=== PATIENT | female | born 1930 | race American Indian/Alaskan Native ===

== ENCOUNTER 2017-03-08 17:30 | Inpatient (IN) | payer MEDICARE ==
[2017-03-08] MEDS ORDERED: ATROVENT IH ONE (21:10)
[2017-03-08] MEDS ORDERED: PROVENTIL IH ONE (21:10)
--- NOTE | 2017-03-08 21:11 | Emergency Department Report ---
ED General Adult HPI - General Chief complaint: Upper Respiratory Infection Stated complaint: FLU LIKE SYMPTOMS Time Seen by Provider: 03/08/17 20:58 Source: patient, family, RN notes reviewed Mode of arrival: Wheelchair Limitations: No Limitations, Physical Limitation - History of Present Illness Initial comments: This is an 86-year-old female who was previously unknown to this provider. Past medical history includes parkinsonism, hypertension, hysterectomy, primary care doctor is Dr. Sachi Mcclendon Patient brought to the hospital by family for cough, mucus production, episode of transient change in mental status. Family reports that the patient appeared dazed and unresponsive for a few minutes, this has since resolved. The patient denies headache, neck pain, chest pain, abdominal pain, miss a cough, wheezing, shortness of breath and mucus production. Cough and wheezing are constant for 1 day, they do not radiate anywhere and they're painless. She denies headache, leg pain, irritative/obstructive urinary symptoms. -: Sudden Consistency: constant Improves with: none Worsens with: none Associated Symptoms: confusion, cough, loss of appetite, malaise, weakness - Related Data Home Medications Medication Instructions Recorded Confirmed Last Taken Amlodipine Besylate [Norvasc] 2.5 mg PO QHS 03/09/17 03/09/17 03/08/17 20:00 Carbidopa/Levodopa 25-100 [Sinemet] 0.5 each PO TID 03/09/17 03/09/17 03/08/17 20:00 Cimetidine 300 mg PO Q12HR 03/09/17 03/09/17 03/08/17 20:00 Fosinopril Sodium 20 mg PO QDAY 03/09/17 03/09/17 03/08/17 10:00 Allergies Allergy/AdvReac Type Severity Reaction Status Date / Time No Known Allergies Allergy Verified 03/08/17 23:47 ED Review of Systems ROS: Stated complaint: FLU LIKE SYMPTOMS Other details as noted in HPI Constitutional: malaise, weakness Respiratory: cough, shortness of breath Cardiovascular: denies: chest pain Gastrointestinal: denies: vomiting Genitourinary: as per HPI Musculoskeletal: as per HPI Skin: as per HPI Neurological: as per HPI, weakness, confusion Psychiatric: as per HPI ED Past Medical Hx - Past Medical History Previous Medical History?: Yes Hx Hypertension: Yes Hx GERD: Yes Hx of Cancer: Yes (uterine) Hx Arthritis: Yes Additional medical history: Parkinson - Surgical History Past Surgical History?: Yes Additional Surgical History: hysterectomy - Social History Smoking Status: Never Smoker Substance Use Type: Prescribed - Medications Home Medications: Home Medications Medication Instructions Recorded Confirmed Last Taken Type Amlodipine Besylate [Norvasc] 2.5 mg PO QHS 03/09/17 03/09/17 03/08/17 20:00 History Carbidopa/Levodopa 25-100 [Sinemet] 0.5 each PO TID 03/09/17 03/09/17 03/08/17 20:00 History Cimetidine 300 mg PO Q12HR 03/09/17 03/09/17 03/08/17 20:00 History Fosinopril Sodium 20 mg PO QDAY 03/09/17 03/09/17 03/08/17 10:00 History ED Physical Exam - General Limitations: Physical Limitation General appearance: alert, in no apparent distress - Head Head exam: Present: atraumatic, normocephalic - Eye Eye exam: Present: normal appearance, EOMI. Absent: nystagmus - ENT ENT exam: Present: normal exam, normal orophraynx, mucous membranes moist, normal external ear exam - Neck Neck exam: Present: normal inspection, full ROM - Respiratory Respiratory exam: Present: rhonchi. Absent: respiratory distress, wheezes, rales - Cardiovascular Cardiovascular Exam: Present: regular rate, normal rhythm, normal heart sounds. Absent: systolic murmur, diastolic murmur, rubs, gallop - GI/Abdominal GI/Abdominal exam: Present: soft, normal bowel sounds. Absent: distended, tenderness, guarding, rebound, rigid, pulsatile mass - Extremities Exam Extremities exam: Present: normal inspection, full ROM, normal capillary refill. Absent: tenderness, pedal edema, joint swelling, calf tenderness - Back Exam Back exam: Present: normal inspection, full ROM. Absent: tenderness, CVA tenderness (R), paraspinal tenderness, vertebral tenderness - Neurological Exam Neurological exam: Present: alert (patient has parkinsonism and shaking), oriented X3, other (Extraocular movements intact. Tongue midline. No facial droop. Facial sensation intact to light touch in the V1, V2, V3 distribution bilaterally. 5 and 5 strength in 4 extremities.. Sensation is intact to light touch in 4 extremities.). Absent: motor sensory deficit - Psychiatric Psychiatric exam: Present: normal affect, normal mood, other (patient can recall 3 out of 3 words at time 0 and at 5 minutes. Patient is able to multiply and add.) - Skin Skin exam: Present: warm, dry, intact, normal color. Absent: rash ED Course Vital Signs 03/08/17 03/08/17 03/08/17 17:36 20:56 21:00 Temperature 98.8 F Pulse Rate 75 79 Pulse Rate [ Right Middle Lobe] Respiratory 18 21 Rate Respiratory Rate [Right Middle Lobe] Blood Pressure 188/85 188/73 O2 Sat by Pulse 97 100 71 L Oximetry 03/08/17 03/08/17 03/08/17 21:15 21:20 21:28 Temperature Pulse Rate 77 Pulse Rate [ 80 Right Middle Lobe] Respiratory 24 20 Rate Respiratory 18 Rate [Right Middle Lobe] Blood Pressure 191/77 O2 Sat by Pulse 99 Oximetry 03/08/17 03/08/17 03/08/17 21:43 21:46 22:10 Temperature Pulse Rate 80 81 96 H Pulse Rate [ Right Middle Lobe] Respiratory 20 17 20 Rate Respiratory Rate [Right Middle Lobe] Blood Pressure 161/71 198/86 O2 Sat by Pulse 100 100 100 Oximetry 03/08/17 03/08/17 03/08/17 22:16 22:30 22:45 Temperature Pulse Rate 97 H 100 H 96 H Pulse Rate [ Right Middle Lobe] Respiratory 22 22 20 Rate Respiratory Rate [Right Middle Lobe] Blood Pressure 121/102 94/47 95/53 O2 Sat by Pulse 93 94 97 Oximetry 03/08/17 03/08/17 03/08/17 22:48 23:00 23:15 Temperature Pulse Rate 94 H 91 H 94 H Pulse Rate [ Right Middle Lobe] Respiratory 22 20 11 L Rate Respiratory Rate [Right Middle Lobe] Blood Pressure 95/53 112/51 105/49 O2 Sat by Pulse 96 94 96 Oximetry 03/08/17 03/08/17 03/09/17 23:30 23:45 00:00 Temperature Pulse Rate 87 82 82 Pulse Rate [ Right Middle Lobe] Respiratory 18 23 21 Rate Respiratory Rate [Right Middle Lobe] Blood Pressure 115/57 112/50 118/50 O2 Sat by Pulse 98 96 95 Oximetry 03/09/17 03/09/17 03/09/17 00:15 00:30 00:45 Temperature Pulse Rate 80 76 74 Pulse Rate [ Right Middle Lobe] Respiratory 23 21 18 Rate Respiratory Rate [Right Middle Lobe] Blood Pressure 115/56 117/57 118/57 O2 Sat by Pulse 98 97 99 Oximetry 03/09/17 03/09/17 03/09/17 01:00 01:16 01:30 Temperature Pulse Rate 75 83 82 Pulse Rate [ Right Middle Lobe] Respiratory 18 20 22 Rate Respiratory Rate [Right Middle Lobe] Blood Pressure 125/56 121/56 121/56 O2 Sat by Pulse 100 99 87 Oximetry 03/09/17 03/09/17 03/09/17 01:46 02:00 02:10 Temperature Pulse Rate 80 80 81 Pulse Rate [ Right Middle Lobe] Respiratory 21 23 18 Rate Respiratory Rate [Right Middle Lobe] Blood Pressure 121/61 122/60 121/61 O2 Sat by Pulse 98 100 99 Oximetry - Reevaluation(s) Reevaluation #1: 03/09/17 01:09 Differential diagnosis, including but not limited to: Urinary tract infection, pneumonia, dehydration, bacteremia Assessment and plan: 86-year-old female with cough, wheezing, bilateral rhonchi , x-ray of the chest suggest bilateral lower lobe pneumonia, patient is tachypneic, initially hypertensive, now somewhat hypotensive with blood pressure in the high 90s, afebrile. Patient will be treated empirically for community-acquired pneumonia. Currently alert and oriented 3, with a nonfocal neurologic examination, with no headache or neck pain. Patient will be admitted for community-acquired pneumonia, and hypotension, IV fluids are being administered, noncontrast CT scan of the brain is pending, laboratory studies otherwise unremarkable, urinalysis is not consistent with UTI. Reevaluation #3: 03/09/17 01:28 Case is presented to the Hospital physician, Dr. Calderon, who accepts the patient to the medical service. ED Medical Decision Making - Lab Data Result diagrams: 03/08/17 21:27 03/08/17 21:27 Vital Signs 03/08/17 03/08/17 03/08/17 17:36 20:56 21:00 Temperature 98.8 F Pulse Rate 75 79 Pulse Rate [ Right Middle Lobe] Respiratory 18 21 Rate Respiratory Rate [Right Middle Lobe] Blood Pressure 188/85 188/73 O2 Sat by Pulse 97 100 71 L Oximetry 03/08/17 03/08/17 03/08/17 21:15 21:20 21:28 Temperature Pulse Rate 77 Pulse Rate [ 80 Right Middle Lobe] Respiratory 24 20 Rate Respiratory 18 Rate [Right Middle Lobe] Blood Pressure 191/77 O2 Sat by Pulse 99 Oximetry 03/08/17 03/08/17 03/08/17 21:43 21:46 22:10 Temperature Pulse Rate 80 81 96 H Pulse Rate [ Right Middle Lobe] Respiratory 20 17 20 Rate Respiratory Rate [Right Middle Lobe] Blood Pressure 161/71 198/86 O2 Sat by Pulse 100 100 100 Oximetry 03/08/17 03/08/17 03/08/17 22:16 22:30 22:45 Temperature Pulse Rate 97 H 100 H 96 H Pulse Rate [ Right Middle Lobe] Respiratory 22 22 20 Rate Respiratory Rate [Right Middle Lobe] Blood Pressure 121/102 94/47 95/53 O2 Sat by Pulse 93 94 97 Oximetry Lab Results 03/08/17 03/08/17 03/08/17 Range/Units 21:27 21:27 22:44 WBC 5.1 (4.5-11.0) K/mm3 RBC 4.34 (3.65-5.03) M/mm3 Hgb 12.8 (10.1-14.3) gm/dl Hct 39.9 (30.3-42.9) % MCV 92 (79-97) fl MCH 29 (28-32) pg MCHC 32 (30-34) % RDW 15.1 (13.2-15.2) % Plt Count 169 (140-440) K/mm3 Sodium 138 (137-145) mmol/L Potassium 4.4 (3.6-5.0) mmol/L Chloride 98.4 (98-107) mmol/L Carbon Dioxide 25 (22-30) mmol/L Anion Gap 19 mmol/L BUN 23 H (7-17) mg/dL Creatinine 1.0 (0.7-1.2) mg/dL Estimated GFR > 60 ml/min BUN/Creatinine Ratio 23 % Glucose 94 (65-100) mg/dL Calcium 8.7 (8.4-10.2) mg/dL Total Creatine Kinase 241 H (30-135) units/L Urine Color Yellow (Yellow) Urine Turbidity Clear (Clear) Urine pH 5.0 (5.0-7.0) Ur Specific [place] 1.025 (1.003-1.030) Urine Protein <15 mg/dl (Negative) mg/dL Urine Glucose (UA) Neg (Negative) mg/dL Urine Ketones Tr (Negative) mg/dL Urine Blood Sm (Negative) Urine Nitrite Neg (Negative) Urine Bilirubin Neg (Negative) Urine Urobilinogen < 2.0 (<2.0) mg/dL Ur Leukocyte Esterase Neg (Negative) Urine WBC (Auto) 1.0 (0.0-6.0) /HPF Urine RBC (Auto) 3.0 (0.0-6.0) /HPF U Epithel Cells (Auto) < 1.0 (0-13.0) /HPF Urine Bacteria (Auto) 1+ (Negative) /HPF Urine Mucus Few /HPF - Radiology Data Radiology results: report reviewed, image reviewed X-ray the chest, interpreted by radiology: Bilateral lower lobe pneumonia versus atelectasis. Noncontrast CT scan of the brain, interpreted by radiology: Negative Critical care attestation.: If time is entered above; I have spent that time in minutes in the direct care of this critically ill patient, excluding procedure time. ED Disposition Clinical Impression: Pneumonia Disposition: DC-09 OP ADMIT IP TO THIS HOSP Is pt being admited?: Yes Condition: Good
[2017-03-08 21:41] LABS: Hematocrit 39.9 % (30.3-42.9); Hemoglobin 12.8 gm/dl (10.1-14.3); Mean Corpuscular HGB Conc 32 % (30-34); Mean Corpuscular Hemoglobin 29 pg (28-32); Mean Corpuscular Volume 92 fl (79-97); Platelet Count 169 K/mm3 (140-440); Red Blood Count 4.34 M/mm3 (3.65-5.03); Red Cell Distribution Width 15.1 % (13.2-15.2)
[2017-03-08 22:12] LABS: BUN/Creatinine Ratio 23; Blood Urea Nitrogen 23 mg/dL (7-17); Calcium 8.7 mg/dL (8.4-10.2); Hemolysis Index 8
[2017-03-08 23:00] LABS: Bacteria,Urine 1+ /HPF (Negative); Bilirubin,Urine NEG (Negative); Blood,Urine SM (Negative); Color,Urine Yellow (Yellow); Mucus,Urine FEW /HPF; Nitrite,Urine NEG (Negative); Protein,Urine <15 mg/dL mg/dL (Negative); Urobilinogen,Urine < 2.0 mg/dL (<2.0)
--- NOTE | 2017-03-08 23:17 | XRay Report ---
FINAL REPORT PROCEDURE: XR CHEST ROUTINE 2V TECHNIQUE: PA and lateral chest radiographs were obtained. CPT 39194 HISTORY: Cough. Question left lower lobe pneumonia. COMPARISON: No prior studies are available for comparison. FINDINGS: Heart: Normal. Mediastinum/Vessels: Aortic tortuosity and calcification. Lungs/Pleural space: Low lung volumes. Bibasilar opacities, more evident in the left lower lobe where there are subtle air bronchograms. Elevation of the right diaphragm. Bony thorax: Osteopenia with mild degenerative changes of the spine. Small density about the left glenoid, consider could be related to calcific tendinopathy or hydroxyapatite deposition. Degenerative change of the left acromioclavicular joint. Other: IMPRESSION: Aortic tortuosity and calcification. Low lung volumes, left greater than right with subtle air bronchograms in left lower lobe. Consider atelectasis, cannot exclude pneumonia.
[2017-03-08] MEDS ORDERED: ZITHROMAX PO ONE (23:42)
[2017-03-08] MEDS ORDERED: cefTRIAXone 1 GM in NACL 0.9% 20 ML IV ONE (23:42)
[2017-03-08] MEDS ORDERED: ROCEPHIN/NS 1 GM/50 ML 1 GM/50 ML BAG IV ONE (23:42)
[2017-03-08] MEDS ORDERED: NACL 0.9% 1000 ML 1,000 ML IV ONE (23:42)
[2017-03-09] MEDS ORDERED: DULCOLAX PR PRN (03:38)
[2017-03-09] MEDS ORDERED: MILK OF MAGNESIA PO PRN (03:38)
[2017-03-09] MEDS ORDERED: PROVENTIL IH PRN (03:38)
[2017-03-09] MEDS ORDERED: ZOFRAN IV PRN (03:38)
[2017-03-09] MEDS ORDERED: NACL 0.9% 1000 ML IV ONE (03:38)
[2017-03-09] MEDS ORDERED: TYLENOL PO PRN (03:38)
--- NOTE | 2017-03-09 03:52 | History and Physical Report ---
History of Present Illness Date of admission: 03/09/17 01:28 Chief complaint: Productive cough History of present illness: Elderly woman who has been noted by family members to be having productive cough for a few days with shakes and phlegm. However in the past day it has gotten much worse she's been coughing nonstop and also wheezing and appeared to be short of breath. At some point her family members noted that she was D and less responsive person and to bring into the hospital Herself and family are not aware of any fevers or chills, denies chest pain, denies nausea or vomiting or diarrhea, denies neck stiffness, denies skin lesions, per Dr Dempsey in the ER she presented with a blood pressure of 188/85, without any specific intervention for blood pressure dropped to 95/53, she received IV fluids after which her systolic him up to 120s Past History Past Medical History: arthritis (uterine), cancer, GERD, hypertension, other ( Parkinson's disease) Past Surgical History: hysterectomy Social history: no significant social history Family history: cancer, hypertension Medications and Allergies Allergies Allergy/AdvReac Type Severity Reaction Status Date / Time No Known Allergies Allergy Verified 03/08/17 23:47 Home Medications Medication Instructions Recorded Confirmed Last Taken Type Amlodipine Besylate [Norvasc] 2.5 mg PO QHS 03/09/17 03/09/17 03/08/17 20:00 History Carbidopa/Levodopa 25-100 [Sinemet] 0.5 each PO TID 03/09/17 03/09/17 03/08/17 20:00 History Cimetidine 300 mg PO Q12HR 03/09/17 03/09/17 03/08/17 20:00 History Fosinopril Sodium 20 mg PO QDAY 03/09/17 03/09/17 03/08/17 10:00 History Active Meds: Active Medications Acetaminophen (Tylenol) 650 mg PO Q4H PRN PRN Reason: Pain MILD(1-3)/Fever >100.5/INMAN Albuterol (Proventil) 2.5 mg IH Q4HRT PRN PRN Reason: Shortness Of Breath Albuterol/Ipratropium (Duoneb *Not For Prn Use*) 1 ampul IH Q6HRT TELMA Azithromycin (Zithromax) 500 mg PO QDAY TELMA Bisacodyl (Dulcolax) 10 mg NM QDAY PRN PRN Reason: Constipation unrelieved by MOM Budesonide (Pulmicort) 0.5 mg IH Q12HRT TELMA Magnesium Hydroxide (Milk Of Magnesia) 30 ml PO Q4H PRN PRN Reason: Constipation Methylprednisolone Sodium Succinate (Solu-Medrol) 40 mg IV Q12HR TELMA Ondansetron HCl (Zofran) 4 mg IV Q8H PRN PRN Reason: N/V unrelieved by Reglan Sodium Chloride (Nacl 0.9% 1000 Ml) 2,180 ml 30 ml/kg (2180 ml) IV ONCE ONE Stop: 03/09/17 03:39 Review of Systems All systems: negative (as stated in HPI, 14 point review of systems is otherwise negative) Exam - Constitutional Vitals: Temp Pulse Resp BP Pulse Ox 98.8 F 80 23 122/60 100 03/08/17 17:36 03/09/17 02:00 03/09/17 02:00 03/09/17 02:00 03/09/17 02:00 General appearance: Present: no acute distress, well-nourished - EENT Eyes: Present: PERRL ENT: hearing intact, clear oral mucosa - Neck Neck: Present: supple, normal ROM - Respiratory Respiratory effort: normal Respiratory: bilateral: rhonchi - Cardiovascular Heart Sounds: Present: S1 & S2. Absent: rub, click - Extremities Extremities: pulses symmetrical Extremity abnormal: edema ([place], R>L, pitting edema) Peripheral Pulses: within normal limits - Abdominal General gastrointestinal: Present: soft, non-tender, non-distended, normal bowel sounds Female genitourinary: Present: normal - Integumentary Integumentary: Present: clear, warm, dry - Musculoskeletal Musculoskeletal: gait normal, strength equal bilaterally - Psychiatric Psychiatric: appropriate mood/affect, intact judgment & insight - Neurologic Neurologic: CNII-XII intact, moves all extremities, other (resting tremor) Results - Labs CBC & Chem 7: 03/08/17 21:27 03/08/17 21:27 Labs: Laboratory Last Values WBC 5.1 K/mm3 (4.5-11.0) 03/08/17 21:27 RBC 4.34 M/mm3 (3.65-5.03) 03/08/17 21:27 Hgb 12.8 gm/dl (10.1-14.3) 03/08/17 21:27 Hct 39.9 % (30.3-42.9) 03/08/17 21:27 MCV 92 fl (79-97) 03/08/17 21:27 MCH 29 pg (28-32) 03/08/17 21: MCHC 32 % (30-34) 03/08/17 21: RDW 15.1 % (13.2-15.2) 03/08/17 21:27 Plt Count 169 K/mm3 (140-440) 03/08/17 21:27 Sodium 138 mmol/L (137-145) 03/08/17 21: Potassium 4.4 mmol/L (3.6-5.0) 03/08/17 21: Chloride 98.4 mmol/L (98-107) 03/08/17 21: Carbon Dioxide 25 mmol/L (22-30) 03/08/17 21: Anion Gap 19 mmol/L 03/08/17 21:27 BUN 23 mg/dL (7-17) H 03/08/17 21:27 Creatinine 1.0 mg/dL (0.7-1.2) 03/08/17 21:27 Estimated GFR > 60 ml/min 03/08/17 21: BUN/Creatinine Ratio 23 % 03/08/17 21: Glucose 94 mg/dL (65-100) 03/08/17 21: Lactic Acid 3.10 mmol/L (0.7-2.0) H* 03/09/17 01:38 Calcium 8.7 mg/dL (8.4-10.2) 03/08/17 21:27 Total Creatine Kinase 241 units/L (30-135) H 03/08/17 21:27 Urine Color Yellow (Yellow) 03/08/17 22:44 Urine Turbidity Clear (Clear) 03/08/17 22:44 Urine pH 5.0 (5.0-7.0) 03/08/17 22:44 Ur Specific [place] 1.025 (1.003-1.030) 03/08/17 22:44 Urine Protein <15 mg/dl mg/dL (Negative) 03/08/17 22:44 Urine Glucose (UA) Neg mg/dL (Negative) 03/08/17 22:44 Urine Ketones Tr mg/dL (Negative) 03/08/17 22:44 Urine Blood Sm (Negative) 03/08/17 22:44 Urine Nitrite Neg (Negative) 03/08/17 22:44 Urine Bilirubin Neg (Negative) 03/08/17 22:44 Urine Urobilinogen < 2.0 mg/dL (<2.0) 03/08/17 22:44 Ur Leukocyte Esterase Neg (Negative) 03/08/17 22:44 Urine WBC (Auto) 1.0 /HPF (0.0-6.0) 03/08/17 22:44 Urine RBC (Auto) 3.0 /HPF (0.0-6.0) 03/08/17 22:44 U Epithel Cells (Auto) < 1.0 /HPF (0-13.0) 03/08/17 22:44 Urine Bacteria (Auto) 1+ /HPF (Negative) 03/08/17 22:44 Urine Mucus Few /HPF 03/08/17 22:44 - Imaging and Cardiology Chest x-ray: image reviewed (poor lung volumes, cannot exclude pneumonia) Assessment and Plan Assessment and plan: Elderly woman being admitted for cough sputum production and wheezing Severe sepsis Lactate noted to be elevated, will give IV fluids, and given antibiotics Community-acquired aspiration pneumonia We'll repeat chest x-ray as well as with low lung volumes Continue Rocephin and azithromycin, obtain sputum cultures swallow eval Hypotension Most likely due to sepsis, improved with IV fluids Acute bronchitis We'll treat with steroids, nebulizer treatments, patient is getting antibiotics as above Metabolic encephalopathy Most likely due to acute infection, improving Lactic acidosis Due to sepsis, we'll treat with IV fluids and treat underlying cause with antibiotics. GERD continue H2 elizabeth HTN currently hypotensive hold all BP meds parkinsons disease continue sinemet LE edema, R>L obtain venous dopplers DVT prophylaxis Lovenox
--- NOTE | 2017-03-09 04:20 | Cat Scan Report ---
FINAL REPORT PROCEDURE: CT HEAD/BRAIN WO CON TECHNIQUE: Computerized tomography of the head was performed without contrast material. HISTORY: ams, resolved COMPARISON: No prior studies are available for comparison. FINDINGS: Skull and scalp: Normal. Paranasal sinuses: Normal. Ventricles and subarachnoid spaces: There is central and cortical atrophy appropriate for the patient's age.. Cerebrum: No evidence of hemorrhage, acute infarction or mass. 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 Cerebellum and brainstem: No evidence of hemorrhage, acute infarction or mass. There is an old lacunar infarct defect in the [place]. Vasculature: There is calcified plaque in the cavernous portions of the internal carotid arteries.. Comments: None. IMPRESSION: There are chronic changes as described. There is no acute intracranial abnormality.
[2017-03-09] MEDS: PULMICORT IH SCH ×2 (07:19→19:50)
[2017-03-09] MEDS: DUONEB *Not for PRN Use IH SCH ×4 (07:19→20:01)
--- NOTE | 2017-03-09 08:41 | XRay Report ---
ROUTINE CHEST, TWO VIEWS: HISTORY: Cough. Hazy opacity at the left lung base has resolved since 03/08/17. This probably represent atelectatic changes. The lungs are generally clear. No pleural effusion or pneumothorax. Normal heart and mediastinal structures. The thoracic cage is grossly intact. IMPRESSION: Unremarkable chest x-ray.
[2017-03-09] MEDS: PEPCID PO SCH ×2 (09:45→22:27)
[2017-03-09] MEDS: ZITHROMAX PO SCH (09:45)
[2017-03-09] MEDS: SINEMET PO SCH ×3 (09:46→20:27)
[2017-03-09] MEDS ORDERED: CIMETIDINE 300 MG PO SCH (10:00)
[2017-03-09] MEDS ORDERED: ROCEPHIN/NS 1 GM/50 ML 1 GM/50 ML BAG IV SCH (10:00)
[2017-03-09] MEDS ORDERED: cefTRIAXone 1 GM in NACL 0.9% 20 ML IV SCH (22:00)
[2017-03-10 04:44] LABS: Hematocrit 40.3 % (30.3-42.9); Hemoglobin 13.3 gm/dl (10.1-14.3); Mean Corpuscular HGB Conc 33 % (30-34); Mean Corpuscular Hemoglobin 30 pg (28-32); Mean Corpuscular Volume 91 fl (79-97); Platelet Count 165 K/mm3 (140-440); Red Blood Count 4.43 M/mm3 (3.65-5.03)
[2017-03-10 04:48] LABS: BUN/Creatinine Ratio 23; Blood Urea Nitrogen 16 mg/dL (7-17); Calcium 8.7 mg/dL (8.4-10.2); Hemolysis Index 48
[2017-03-10] MEDS: DUONEB *Not for PRN Use IH SCH ×3 (07:38→19:44)
[2017-03-10] MEDS: PULMICORT IH SCH ×2 (07:38→19:44)
[2017-03-10 07:57] LABS: Basophils % (Manual) 0 % (0.0-1.8); Eosinophils % (Manual) 0 % (0.0-4.3); Total Cells Counted 100
[2017-03-10 07:58] LABS: Anisocytosis Few; Poikilocytosis Few
--- NOTE | 2017-03-10 10:21 | Progress Note ---
<NAVI AVILES - Last Filed: 03/10/17 13:34> Assessment and Plan Assessment and plan: Patient brought to the hospital by family for cough, mucus production, episode of transient change in mental status. Family reports that the patient appeared dazed and unresponsive for a few minutes, this has since resolved. The patient denies headache, neck pain, chest pain, abdominal pain, miss a cough, wheezing, shortness of breath and mucus production. Cough and wheezing are constant for 1 day, they do not radiate anywhere and they're painless. She denies headache, leg pain, irritative/obstructive urinary symptoms Sepsis Lactate was elevated yesterday, continue IV fluids and antibiotics Community-acquired aspiration pneumonia Repeat chest x-ray was unremarkable Continue Rocephin and azithromycin, obtain sputum cultures swallow eval ordered Hypotension Resolved now, will continue to monitor Most likely due to sepsis, improved with IV fluids Acute bronchitis We'll continue to treat with steroids, nebulizer treatments, patient is getting antibiotics as above Metabolic encephalopathy Most likely due to acute infection, improving Lactic acidosis Due to sepsis, we'll treat with IV fluids and treat underlying cause with antibiotics. GERD continue H2 elizabeth HTN Hypotension resolved, will continue to monitor BP and reassess for meds Parkinsons disease continue sinemet LE edema, R>L Venous dopplers shows no evidence of DVT/SVT DVT prophylaxis Lovenox History Interval history: Patient was seen and examined. No new events overnight. Denies shortness of breath, chest pain, nausea, vomiting. Nursing notes and labs reviewed. Hospitalist Physical - Constitutional Vitals: Temp Pulse Resp BP Pulse Ox 98.5 F 99 H 20 160/72 93 03/10/17 08:16 03/10/17 08:16 03/10/17 08:16 03/10/17 08:16 03/10/17 08:16 General appearance: Present: no acute distress, well-nourished - EENT Eyes: Present: PERRL, EOM intact ENT: hearing intact, clear oral mucosa - Neck Neck: Present: supple, normal ROM - Respiratory Respiratory effort: normal Respiratory: bilateral: diminished - Cardiovascular Rhythm: regular Heart Sounds: Present: S1 & S2 - Extremities Extremities: no ischemia, No edema - Abdominal General gastrointestinal: soft, non-tender - Integumentary Integumentary: Present: clear, warm, dry - Psychiatric Psychiatric: appropriate mood/affect, cooperative - Neurologic Neurologic: CNII-XII intact, moves all extremities - Allied Health Allied health notes reviewed: nursing Results - Labs CBC & Chem 7: 03/10/17 04:02 03/10/17 04:02 Labs: Laboratory Last Values WBC 1.9 K/mm3 (4.5-11.0) L* 03/10/17 04:02 RBC 4.43 M/mm3 (3.65-5.03) 03/10/17 04:02 Hgb 13.3 gm/dl (10.1-14.3) 03/10/17 04:02 Hct 40.3 % (30.3-42.9) 03/10/17 04:02 MCV 91 fl (79-97) 03/10/17 04:02 MCH 30 pg (28-32) 03/10/17 04:02 MCHC 33 % (30-34) 03/10/17 04:02 RDW 15.0 % (13.2-15.2) 03/10/17 04:02 Plt Count 165 K/mm3 (140-440) 03/10/17 04:02 Add Manual Diff Complete 03/10/17 04:02 Total Counted 100 03/10/17 04:02 Seg Neuts % (Manual) 63.0 % (40.0-70.0) 03/10/17 04:02 Band Neutrophils % 2.0 % 03/10/17 04:02 Lymphocytes % (Manual) 29.0 % (13.4-35.0) 03/10/17 04:02 Reactive Lymphs % (Man) 0 % 03/10/17 04:02 Monocytes % (Manual) 6.0 % (0.0-7.3) 03/10/17 04:02 Eosinophils % (Manual) 0 % (0.0-4.3) 03/10/17 04:02 Basophils % (Manual) 0 % (0.0-1.8) 03/10/17 04:02 Metamyelocytes % 0 % 03/10/17 04:02 Myelocytes % 0 % 03/10/17 04:02 Promyelocytes % 0 % 03/10/17 04:02 Blast Cells % 0 % 03/10/17 04:02 Nucleated RBC % Not Reportable 03/10/17 04:02 Seg Neutrophils # Man 1.2 K/mm3 (1.8-7.7) L 03/10/17 04:02 Band Neutrophils # 0.0 K/mm3 03/10/17 04:02 Lymphocytes # (Manual) 0.6 K/mm3 (1.2-5.4) L 03/10/17 04:02 Abs React Lymphs (Man) 0.0 K/mm3 03/10/17 04:02 Monocytes # (Manual) 0.1 K/mm3 (0.0-0.8) 03/10/17 04:02 Eosinophils # (Manual) 0.0 K/mm3 (0.0-0.4) 03/10/17 04:02 Basophils # (Manual) 0.0 K/mm3 (0.0-0.1) 03/10/17 04:02 Metamyelocytes # 0.0 K/mm3 03/10/17 04:02 Myelocytes # 0.0 K/mm3 03/10/17 04:02 Promyelocytes # 0.0 K/mm3 03/10/17 04:02 Blast Cells # 0.0 K/mm3 03/10/17 04:02 WBC Morphology Not Reportable 03/10/17 04:02 Hypersegmented Neuts Not Reportable 03/10/17 04:02 Hyposegmented Neuts Not Reportable 03/10/17 04:02 Hypogranular Neuts Not Reportable 03/10/17 04:02 Smudge Cells Not Reportable 03/10/17 04:02 Toxic Granulation Not Reportable 03/10/17 04:02 Toxic Vacuolation Not Reportable 03/10/17 04:02 Dohle Bodies Not Reportable 03/10/17 04:02 Pelger-Huet Anomaly Not Reportable 03/10/17 04:02 Ritika Rods Not Reportable 03/10/17 04:02 Platelet Estimate Not Reportable 03/10/17 04:02 Clumped Platelets Not Reportable 03/10/17 04:02 Plt Clumps, EDTA Not Reportable 03/10/17 04:02 Large Platelets Not Reportable 03/10/17 04:02 Giant Platelets Not Reportable 03/10/17 04:02 Platelet Satelliting Not Reportable 03/10/17 04:02 Plt Morphology Comment Not Reportable 03/10/17 04:02 RBC Morphology Not Reportable 03/10/17 04:02 Dimorphic RBCs Not Reportable 03/10/17 04:02 Polychromasia Not Reportable 03/10/17 04:02 Hypochromasia Not Reportable 03/10/17 04:02 Poikilocytosis Few 03/10/17 04:02 Anisocytosis Few 03/10/17 04:02 Microcytosis Not Reportable 03/10/17 04:02 Macrocytosis Not Reportable 03/10/17 04:02 Spherocytes Not Reportable 03/10/17 04:02 Pappenheimer Bodies Not Reportable 03/10/17 04:02 Sickle Cells Not Reportable 03/10/17 04:02 Target Cells Not Reportable 03/10/17 04:02 Tear Drop Cells Not Reportable 03/10/17 04:02 Ovalocytes Not Reportable 03/10/17 04:02 Helmet Cells Not Reportable 03/10/17 04:02 Thornton-Webber Bodies Not Reportable 03/10/17 04:02 Rodessa Rings Not Reportable 03/10/17 04:02 Puneet Cells Not Reportable 03/10/17 04:02 Bite Cells Not Reportable 03/10/17 04:02 Crenated Cell Not Reportable 03/10/17 04:02 Elliptocytes Not Reportable 03/10/17 04:02 Acanthocytes (Spur) Not Reportable 03/10/17 04:02 Rouleaux Not Reportable 03/10/17 04:02 Hemoglobin C Crystals Not Reportable 03/10/17 04:02 Schistocytes Not Reportable 03/10/17 04:02 Malaria parasites Not Reportable 03/10/17 04:02 Albaro Bodies Not Reportable 03/10/17 04:02 Hem Pathologist Commnt No 03/10/17 04:02 Sodium 139 mmol/L (137-145) 03/10/17 04:02 Potassium 4.8 mmol/L (3.6-5.0) 03/10/17 04:02 Chloride 102.5 mmol/L (98-107) 03/10/17 04:02 Carbon Dioxide 24 mmol/L (22-30) 03/10/17 04:02 Anion Gap 17 mmol/L 03/10/17 04:02 BUN 16 mg/dL (7-17) 03/10/17 04:02 Creatinine 0.7 mg/dL (0.7-1.2) 03/10/17 04:02 Estimated GFR > 60 ml/min 03/10/17 04:02 BUN/Creatinine Ratio 23 % 03/10/17 04:02 Glucose 136 mg/dL (65-100) H 03/10/17 04:02 Lactic Acid 3.10 mmol/L (0.7-2.0) H* 03/09/17 01:38 Calcium 8.7 mg/dL (8.4-10.2) 03/10/17 04:02 Total Creatine Kinase 241 units/L (30-135) H 03/08/17 21:27 Urine Color Yellow (Yellow) 03/08/17 22:44 Urine Turbidity Clear (Clear) 03/08/17 22:44 Urine pH 5.0 (5.0-7.0) 03/08/17 22:44 Ur Specific [place] 1.025 (1.003-1.030) 03/08/17 22:44 Urine Protein <15 mg/dl mg/dL (Negative) 03/08/17 22:44 Urine Glucose (UA) Neg mg/dL (Negative) 03/08/17 22:44 Urine Ketones Tr mg/dL (Negative) 03/08/17 22:44 Urine Blood Sm (Negative) 03/08/17 22:44 Urine Nitrite Neg (Negative) 03/08/17 22:44 Urine Bilirubin Neg (Negative) 03/08/17 22:44 Urine Urobilinogen < 2.0 mg/dL (<2.0) 03/08/17 22:44 Ur Leukocyte Esterase Neg (Negative) 03/08/17 22:44 Urine WBC (Auto) 1.0 /HPF (0.0-6.0) 03/08/17 22:44 Urine RBC (Auto) 3.0 /HPF (0.0-6.0) 03/08/17 22:44 U Epithel Cells (Auto) < 1.0 /HPF (0-13.0) 03/08/17 22:44 Urine Bacteria (Auto) 1+ /HPF (Negative) 03/08/17 22:44 Urine Mucus Few /HPF 03/08/17 22:44 <AMBREEN HERNANDES R - Last Filed: 03/10/17 13:43> Assessment and Plan Assessment and plan: I saw and evaluated the patient. I agree with the findings and the plan of care as documented in the PA's~note Hospitalist Physical - Constitutional Vitals: Temp Pulse Resp BP Pulse Ox 98.5 F 99 H 20 160/72 93 03/10/17 08:16 03/10/17 08:16 03/10/17 08:16 03/10/17 08:16 03/10/17 08:16 Results - Labs CBC & Chem 7: 03/10/17 04:02 03/10/17 04:02 Labs: Laboratory Last Values WBC 1.9 K/mm3 (4.5-11.0) L* 03/10/17 04:02 RBC 4.43 M/mm3 (3.65-5.03) 03/10/17 04:02 Hgb 13.3 gm/dl (10.1-14.3) 03/10/17 04:02 Hct 40.3 % (30.3-42.9) 03/10/17 04:02 MCV 91 fl (79-97) 03/10/17 04:02 MCH 30 pg (28-32) 03/10/17 04:02 MCHC 33 % (30-34) 03/10/17 04:02 RDW 15.0 % (13.2-15.2) 03/10/17 04:02 Plt Count 165 K/mm3 (140-440) 03/10/17 04:02 Add Manual Diff Complete 03/10/17 04:02 Total Counted 100 03/10/17 04:02 Seg Neuts % (Manual) 63.0 % (40.0-70.0) 03/10/17 04:02 Band Neutrophils % 2.0 % 03/10/17 04:02 Lymphocytes % (Manual) 29.0 % (13.4-35.0) 03/10/17 04:02 Reactive Lymphs % (Man) 0 % 03/10/17 04:02 Monocytes % (Manual) 6.0 % (0.0-7.3) 03/10/17 04:02 Eosinophils % (Manual) 0 % (0.0-4.3) 03/10/17 04:02 Basophils % (Manual) 0 % (0.0-1.8) 03/10/17 04:02 Metamyelocytes % 0 % 03/10/17 04:02 Myelocytes % 0 % 03/10/17 04:02 Promyelocytes % 0 % 03/10/17 04:02 Blast Cells % 0 % 03/10/17 04:02 Nucleated RBC % Not Reportable 03/10/17 04:02 Seg Neutrophils # Man 1.2 K/mm3 (1.8-7.7) L 03/10/17 04:02 Band Neutrophils # 0.0 K/mm3 03/10/17 04:02 Lymphocytes # (Manual) 0.6 K/mm3 (1.2-5.4) L 03/10/17 04:02 Abs React Lymphs (Man) 0.0 K/mm3 03/10/17 04:02 Monocytes # (Manual) 0.1 K/mm3 (0.0-0.8) 03/10/17 04:02 Eosinophils # (Manual) 0.0 K/mm3 (0.0-0.4) 03/10/17 04:02 Basophils # (Manual) 0.0 K/mm3 (0.0-0.1) 03/10/17 04:02 Metamyelocytes # 0.0 K/mm3 03/10/17 04:02 Myelocytes # 0.0 K/mm3 03/10/17 04:02 Promyelocytes # 0.0 K/mm3 03/10/17 04:02 Blast Cells # 0.0 K/mm3 03/10/17 04:02 WBC Morphology Not Reportable 03/10/17 04:02 Hypersegmented Neuts Not Reportable 03/10/17 04:02 Hyposegmented Neuts Not Reportable 03/10/17 04:02 Hypogranular Neuts Not Reportable 03/10/17 04:02 Smudge Cells Not Reportable 03/10/17 04:02 Toxic Granulation Not Reportable 03/10/17 04:02 Toxic Vacuolation Not Reportable 03/10/17 04:02 Dohle Bodies Not Reportable 03/10/17 04:02 Pelger-Huet Anomaly Not Reportable 03/10/17 04:02 Ritika Rods Not Reportable 03/10/17 04:02 Platelet Estimate Not Reportable 03/10/17 04:02 Clumped Platelets Not Reportable 03/10/17 04:02 Plt Clumps, EDTA Not Reportable 03/10/17 04:02 Large Platelets Not Reportable 03/10/17 04:02 Giant Platelets Not Reportable 03/10/17 04:02 Platelet Satelliting Not Reportable 03/10/17 04:02 Plt Morphology Comment Not Reportable 03/10/17 04:02 RBC Morphology Not Reportable 03/10/17 04:02 Dimorphic RBCs Not Reportable 03/10/17 04:02 Polychromasia Not Reportable 03/10/17 04:02 Hypochromasia Not Reportable 03/10/17 04:02 Poikilocytosis Few 03/10/17 04:02 Anisocytosis Few 03/10/17 04:02 Microcytosis Not Reportable 03/10/17 04:02 Macrocytosis Not Reportable 03/10/17 04:02 Spherocytes Not Reportable 03/10/17 04:02 Pappenheimer Bodies Not Reportable 03/10/17 04:02 Sickle Cells Not Reportable 03/10/17 04:02 Target Cells Not Reportable 03/10/17 04:02 Tear Drop Cells Not Reportable 03/10/17 04:02 Ovalocytes Not Reportable 03/10/17 04:02 Helmet Cells Not Reportable 03/10/17 04:02 Thornton-Webber Bodies Not Reportable 03/10/17 04:02 Rodessa Rings Not Reportable 03/10/17 04:02 Puneet Cells Not Reportable 03/10/17 04:02 Bite Cells Not Reportable 03/10/17 04:02 Crenated Cell Not Reportable 03/10/17 04:02 Elliptocytes Not Reportable 03/10/17 04:02 Acanthocytes (Spur) Not Reportable 03/10/17 04:02 Rouleaux Not Reportable 03/10/17 04:02 Hemoglobin C Crystals Not Reportable 03/10/17 04:02 Schistocytes Not Reportable 03/10/17 04:02 Malaria parasites Not Reportable 03/10/17 04:02 Albaro Bodies Not Reportable 03/10/17 04:02 Hem Pathologist Commnt No 03/10/17 04:02 Sodium 139 mmol/L (137-145) 03/10/17 04:02 Potassium 4.8 mmol/L (3.6-5.0) 03/10/17 04:02 Chloride 102.5 mmol/L (98-107) 03/10/17 04:02 Carbon Dioxide 24 mmol/L (22-30) 03/10/17 04:02 Anion Gap 17 mmol/L 03/10/17 04:02 BUN 16 mg/dL (7-17) 03/10/17 04:02 Creatinine 0.7 mg/dL (0.7-1.2) 03/10/17 04:02 Estimated GFR > 60 ml/min 03/10/17 04:02 BUN/Creatinine Ratio 23 % 03/10/17 04:02 Glucose 136 mg/dL (65-100) H 03/10/17 04:02 Lactic Acid 3.10 mmol/L (0.7-2.0) H* 03/09/17 01:38 Calcium 8.7 mg/dL (8.4-10.2) 03/10/17 04:02 Total Creatine Kinase 241 units/L (30-135) H 03/08/17 21:27 Urine Color Yellow (Yellow) 03/08/17 22:44 Urine Turbidity Clear (Clear) 03/08/17 22:44 Urine pH 5.0 (5.0-7.0) 03/08/17 22:44 Ur Specific [place] 1.025 (1.003-1.030) 03/08/17 22:44 Urine Protein <15 mg/dl mg/dL (Negative) 03/08/17 22:44 Urine Glucose (UA) Neg mg/dL (Negative) 03/08/17 22:44 Urine Ketones Tr mg/dL (Negative) 03/08/17 22:44 Urine Blood Sm (Negative) 03/08/17 22:44 Urine Nitrite Neg (Negative) 03/08/17 22:44 Urine Bilirubin Neg (Negative) 03/08/17 22:44 Urine Urobilinogen < 2.0 mg/dL (<2.0) 03/08/17 22:44 Ur Leukocyte Esterase Neg (Negative) 03/08/17 22:44 Urine WBC (Auto) 1.0 /HPF (0.0-6.0) 03/08/17 22:44 Urine RBC (Auto) 3.0 /HPF (0.0-6.0) 03/08/17 22:44 U Epithel Cells (Auto) < 1.0 /HPF (0-13.0) 03/08/17 22:44 Urine Bacteria (Auto) 1+ /HPF (Negative) 03/08/17 22:44 Urine Mucus Few /HPF 03/08/17 22:44
[2017-03-10] MEDS: ZITHROMAX PO SCH (10:36)
[2017-03-10] MEDS: SINEMET PO SCH ×2 (10:37→14:35)
[2017-03-10] MEDS: PEPCID PO SCH (10:37)
[2017-03-10] MEDS ORDERED: NORVASC PO SCH (22:00)
[2017-03-11] MEDS: DUONEB *Not for PRN Use IH SCH ×2 (08:51→13:02)
[2017-03-11] MEDS: SINEMET PO SCH (10:28)
[2017-03-11] MEDS: ZITHROMAX PO SCH (10:29)
[2017-03-11] MEDS: PEPCID PO SCH (10:29)
--- NOTE | 2017-03-11 10:32 | Discharge Summary ---
<NAVI AVILES - Last Filed: 03/11/17 14:26> Providers - Providers Date of Admission: 03/09/17 01:28 Date of discharge: 03/11/17 Attending physician: AMBREEN HERNANDES 03/09/17 03:58 Speech Therapy Evaluation and Treat [CONS] Routine Reason For Exam: dysphagia 03/09/17 04:46 Physical Therapy Evaluation and Treat [CONS] Routine Comment: Reason For Exam: Parkinson's 03/09/17 07:00 Occupational Therapy Evaluate and Treat [CONS] Routine Comment: Reason For Exam: Parkinson's Primary care physician: RAMA LUCAS Hospitalization Condition: Good Pertinent studies: Chest x-ray revealed aortic tortuosity and calcification, low lung volumes, left greater than right with subtle air bronchograms in left lower lobe. Subsequent chest x-ray was unremarkable. Head CT revealed no acute cranial abnormality. Lower extremity venous duplex ultrasound revealed no evidence of acute or chronic DVT in either lower extremity. Hospital course: Patient brought to the hospital by family for cough, mucus production, episode of transient change in mental status. Family reports that the patient appeared dazed and unresponsive for a few minutes, this has since resolved. The patient denies headache, neck pain, chest pain, abdominal pain, miss a cough, wheezing, shortness of breath and mucus production. Cough and wheezing are constant for 1 day, they do not radiate anywhere and they're painless. She denies headache, leg pain, irritative/obstructive urinary symptoms. Patient was treated with bronchodilators, antihypertensive, antibiotics, thyroids, IV fluids and resume home medications Discharge Diagnoses Sepsis Community-acquired aspiration pneumonia Hypotension Acute bronchitis Metabolic encephalopathy Lactic acidosis GERD Hypertension Parkinson's disease Lower extremity edema DVT prophylaxis Disposition: DC/[place]-06 HOME UNDER HOME [facility] Core Measure Documentation - Palliative Care Palliative Care/ Comfort Measures: Not Applicable - Core Measures Any of the following diagnoses?: none Exam - Constitutional Vitals: Temp Pulse Resp BP Pulse Ox 98.5 F 83 18 104/67 95 03/11/17 08:56 03/11/17 08:56 03/11/17 08:56 03/11/17 08:56 03/11/17 08:56 General appearance: Present: no acute distress, well-nourished - EENT Eyes: Present: PERRL ENT: hearing intact, clear oral mucosa - Neck Neck: Present: supple, normal ROM - Respiratory Respiratory effort: normal Respiratory: bilateral: CTA - Cardiovascular Heart Sounds: Present: S1 & S2. Absent: rub, click - Extremities Extremities: pulses symmetrical, No edema Peripheral Pulses: within normal limits - Abdominal General gastrointestinal: Present: soft, non-tender, non-distended, normal bowel sounds Female genitourinary: Present: deferred - Rectal Rectal Exam: deferred - Integumentary Integumentary: Present: clear, warm, dry - Musculoskeletal Musculoskeletal: gait normal, strength equal bilaterally - Psychiatric Psychiatric: appropriate mood/affect, intact judgment & insight - Neurologic Neurologic: CNII-XII intact, moves all extremities - Allied Health Allied health notes reviewed: nursing Plan Activity: advance as tolerated, fall precautions Diet: low fat, low cholesterol, low salt Follow up with: RAMA LUCAS MD [Primary Care Provider] - 3-5 Days Prescriptions: ALBUTEROL Inhaler [ProAir HFA Inhaler] 2 puff IH QID PRN #1 inhalation PRN Reason: Shortness Of Breath Inhaler, Assist Devices [Aerochamber with Flowsignal] 1 each MC PRN PRN #1 spacer PRN Reason: Shortness Of Breath Levofloxacin [Levaquin] 750 mg PO QDAY #7 tablet methylPREDNISolone [Medrol Dose Ambrosio] 1 dose PO DAILY #1 pack <AMBREEN HERNANDES - Last Filed: 03/11/17 15:27> Providers - Providers Date of Admission: 03/09/17 01:28 Attending physician: AMBREEN HERNANDES 03/09/17 03:58 Speech Therapy Evaluation and Treat [CONS] Routine Reason For Exam: dysphagia 03/09/17 04:46 Physical Therapy Evaluation and Treat [CONS] Routine Comment: Reason For Exam: Parkinson's 03/09/17 07:00 Occupational Therapy Evaluate and Treat [CONS] Routine Comment: Reason For Exam: Parkinson's Primary care physician: RAMA LUCAS Hospitalization Hospital course: I saw and evaluated the patient. I agree with the findings and the plan of care as documented in the PA's~note, with the following corrections and additions. Time spent for discharge: 35 minutes Core Measure Documentation - Palliative Care Palliative Care/ Comfort Measures: Not Applicable - Core Measures Any of the following diagnoses?: none - VTE Discharge Requirements Deep Vein Thrombosis/Pulmonary Embolism Present on Admission: No Has pt received <5 days of overlap therapy or INR<2.0: No Anticoagulant overlap therapy prescribed at discharge: No Contraindication No Overlap Therapy order at DC: Not Indicated Exam - Constitutional Vitals: Temp Pulse Resp BP Pulse Ox 98.5 F 83 18 104/67 95 03/11/17 08:56 03/11/17 08:56 03/11/17 08:56 03/11/17 08:56 03/11/17 08:56 Plan Activity: other (no strenous activity until cleared by PCP)
[2017-03-11] MEDS: PULMICORT IH SCH (13:02)
[2017-03-11 15:27] VITALS: BP 137/66
== END 2017-03-11 16:20 | disposition home or self-care (01) | DRG 871 ==
LOC: ED 17:30 → 2B-ACE 03-09 01:28
PROVIDERS: ADMIT Internal Medicine; ATTEND Internal Medicine
DX: A41.9 Sepsis, unspecified organism (principal); J69.0 Pneumonitis due to inhalation of food and vomit; G93.41 Metabolic encephalopathy; R65.20 Severe sepsis without septic shock; J20.9 Acute bronchitis, unspecified; I10 Essential (primary) hypertension; K21.9 Gastro-esophageal reflux disease without esophagitis; M19.90 Unspecified osteoarthritis, unspecified site; R60.0 Localized edema; G20 Parkinson's disease; Z90.710 Acquired absence of both cervix and uterus; Z85.42 Personal history of malignant neoplasm of other parts of uterus; Z82.49 Family history of ischemic heart disease and other diseases of the circulatory system
CPT/HCPCS: 36415; 70450; 71020; 80048; 81001; 82140; 82550; 85007; 85025; 85027; 87040; 87086; 93970; 94640; 99285; G8978-GP; G8979-GP; G8980-GP; G8987-GO; G8988-GO; G8996-GN; G8997-GN; G8998-GN; J0696; J2920; J7030